=== PATIENT | male | born 1950 | race African-American/Black ===

== ENCOUNTER 2017-06-02 14:34 | Emergency (ER) | payer MEDICARE ==
[~2017-06-02] VITALS: Ht 177.8 cm; Wt 85.0 kg
[~2017-06-02 14:34] MED LIST: MULT-1131 PO
[2017-06-02 16:28] LABS: HEMATOCRIT. 38.7 % (42.0-52.0); HEMOGLOBIN. 12.8 g/dL (14.0-18.0); MEAN CORPUSCULAR HEMOGLOBIN 29.5 pg (28.0-32.0); MEAN CORPUSCULAR VOLUME 89.3 fL (80.0-94.0); MEAN PLATELET VOLUME 7.2 fl (7.4-10.4); PLATELET 361 x1000/uL (130-400); RED BLOOD CELL COUNT 4.34 mill/uL (4.7-6.1)
[2017-06-02 16:30] LABS: INR 1.1; PARTIAL THROMBOPLASTIN TIME 27.8 sec (23.4-31.0)
[2017-06-02 16:31] LABS: CHLORIDE 105 mEq/L (98-107)
[2017-06-02 16:37] LABS: TROPONIN I < 0.02 ng/mL (0.00-0.04)
[2017-06-02 16:51] LABS: PLATELET ESTIMATE NORMAL
[2017-06-02 22:18] VITALS: BP 126/79
== END 2017-06-02 22:22 | disposition home or self-care (01) ==
LOC: ER 15:37
DX: R42 Dizziness and giddiness (principal)
CPT/HCPCS: 36415; 71045; 80053; 83690; 84484; 85025; 85610; 85730; 93005; 99285

== ENCOUNTER 2017-06-13 11:04 | Emergency (ER) | payer MEDICARE ==
[~2017-06-13] VITALS: Ht 182.9 cm; Wt 105.0 kg
[2017-06-13 11:19] VITALS: BP 150/85
[2017-06-13] MEDS ORDERED: KETOROLAC 15MG/ML VIAL IV ONE (15:15)
[2017-06-13 15:48] LABS: BASOPHILS % 0.5 % (0.0-2.0); EOSINOPHILS % 1.9 % (0.0-5.0); HEMATOCRIT. 36.2 % (42.0-52.0); HEMOGLOBIN. 12.2 g/dL (14.0-18.0); LYMPHOCYTES % 20.5 % (20.0-50.0); MEAN CORPUSCULAR HEMOGLOBIN 29.9 pg (28.0-32.0); MEAN CORPUSCULAR VOLUME 88.8 fL (80.0-94.0); MEAN PLATELET VOLUME 7.2 fl (7.4-10.4); MONOCYTES % 10.8 % (2.0-8.0); NEUTROPHILS % 66.3 % (40.0-76.0); PLATELET 303 x1000/uL (130-400); RED BLOOD CELL COUNT 4.08 mill/uL (4.7-6.1); RED CELL DISTRIBUTION WIDTH 14.1 % (11.6-14.6)
[2017-06-13 15:59] LABS: CHLORIDE 109 mEq/L (98-107)
[2017-06-13] MEDS ORDERED: IOHEXOL-300 100 ML BOTTLE ONE (17:13)
== END 2017-06-13 19:43 | disposition home or self-care (01) ==
LOC: ER 11:04
DX: R22.1 Localized swelling, mass and lump, neck (principal); R51 Headache; R22.0 Localized swelling, mass and lump, head
CPT/HCPCS: 36415; 70486; 70487; 80048; 85025; 96374; 99285; J1885; Q9967